=== PATIENT | female | born 1985 | race Hispanic/Latino ===

== ENCOUNTER 2018-06-06 20:11 | Inpatient (IN) | payer SELFPAY ==
[~2018-06-06] VITALS: Ht 160 cm; Wt 69.9 kg
[2018-06-06 20:33] LABS: APPEARANCE,URINE Clear (CLEAR); BILIRUBIN,URINE Negative (NEGATIVE); COLOR,URINE Yellow (YELLOW); GLUCOSE, URINE (UA) Negative (NEGATIVE); KETONES,URINE Negative (NEGATIVE); LEUKOCYTE ESTERASE ,URINE Trace (NEGATIVE); NITRATE,URINE Negative (NEGATIVE); OCCULT BLOOD,URINE Moderate (NEGATIVE); PROTEIN,URINE Negative (NEGATIVE)
[2018-06-06 20:37] LABS: HCG,QUAL RESULT NEGATIVE (NEGATIVE)
[2018-06-06 20:37] LABS: BASOPHILS % (AUTO) 0.7 % (0.0-5.0); EOSINOPHILS % (AUTO) 1.9 % (0.0-8.0); HEMATOCRIT 35.4 % (36-48); LYMPHOCYTES % (AUTO) 40.7 % (21.0-51.0); MEAN CORPUSCULAR HEMOGLOBIN 26.4 pg (27.0-33.0); MONOCYTES % (AUTO) 6.4 % (3.0-13.0); NEUTROPHILS % (AUTO) 50.3 % (40.0-77.0); PLATELET COUNT (AUTO) 345 K/uL (130-400); RED BLOOD CELL COUNT(AUTO) 4.42 MIL/uL (4.00-5.50); RED CELL DISTRIBUTION WIDTH 14.5 % (11.0-15.5); WHITE BLOOD COUNT (AUTO) 5.9 K/uL (4.8-10.8)
[2018-06-06 20:44] LABS: BACTERIA,URINE Rare /HPF (None Seen); SQUAMOUS EPITHELIAL CELL,UR Few /HPF (0-2); WBC,URINE 0-1 /HPF (0-1)
[2018-06-06 20:50] LABS: CREATININE 0.7 mg/dL (0.5-1.5); POTASSIUM 3.6 mmol/L (3.5-5.1)
[2018-06-06 20:54] LABS: ALBUMIN 3.9 g/dL (3.5-5.0); BILIRUBIN,TOTAL 0.2 mg/dL (0.2-1.0); TOTAL PROTEIN, SERUM 7.8 g/dL (6.0-8.3)
[2018-06-06] MEDS ORDERED: SODIUM CHLORIDE 0.9% 1000ML 2,000 ML IV ONE (21:28)
[2018-06-06] MEDS ORDERED: ONDANSETRON HCL 4 MG/2 ML VIAL ONE (21:28)
[2018-06-06] MEDS ORDERED: MORPHINE SULFATE 4 MG/1ML SYG ONE (21:29)
[2018-06-07] MEDS ORDERED: MORPHINE SULFATE 2 MG/ML 1ML SYG ONE ×2 (01:06→03:39)
[2018-06-07] MEDS ORDERED: ONDANSETRON HCL 4 MG/2 ML VIAL IV PRN (02:30)
[2018-06-07] MEDS ORDERED: ACETAMINOPHEN 325 MG TAB PO PRN ×2 (02:30→10:00)
[2018-06-07 02:50] VITALS: BP 110/59
[2018-06-07] MEDS ORDERED: ONDANSETRON HCL 4 MG/2 ML VIAL ONE (03:39)
[2018-06-07] MEDS: MORPHINE SULFATE 2 MG/ML 1ML SYG IV PRN ×3 (03:44→22:02)
[2018-06-07 08:11] VITALS: BP 86/40
[2018-06-07] MEDS: SODIUM CHLORIDE 0.9% 1000ML 1,000 ML IV SCH ×3 (09:06→16:06)
[2018-06-07] MEDS: FAMOTIDINE/PF 20 MG/2 ML VIAL IV SCH ×2 (09:25→20:52)
[2018-06-07] MEDS ORDERED: TRAMADOL HCL 50 MG TABLET PO PRN (10:00)
[2018-06-07] MEDS ORDERED: ONDANSETRON HCL MDV 20ML 2 MG/ML VIAL IVP PRN (10:00)
[2018-06-07] MEDS ORDERED: MORPHINE SULFATE 4 MG/1ML SYG IV PRN (10:00)
[2018-06-07] MEDS ORDERED: HYDRALAZINE HCL 20 MG/ML VIAL IV PRN (10:00)
[2018-06-07 11:37] VITALS: BP 99/37
[2018-06-07 15:40] VITALS: BP 98/62
--- NOTE | 2018-06-07 16:07 | NUR ---
IA/DCP/ SELF PAY PKT IA DONE W TEJINDER AT B/SIDE ENG SPEAKING, AA[place] LIVES W SONS 8 & 10; BOYFIREND TO HELP ON DC; UGO NO HH NO PROV; CURRENTLY UNEMPLOYED; PREVIOUS CLIENT OF [facility], WAS TOLD SHE COULD NOT HAVE FREE APPTS; STOPPED GOING ADVISED PATIENT TO RE REGISTER; CO PAY POSSIBLE Addendum: 06/07/18 at 1610 by TRINH CURRIE RN CM Amended: Links added.
[2018-06-07 20:11] VITALS: BP 94/54
[2018-06-07] MEDS ORDERED: FAMOTIDINE/PF 20 MG/2 ML VIAL IV SCH (21:00)
[2018-06-07 23:26] VITALS: BP 98/47
[2018-06-08 03:37] VITALS: BP 102/48
[2018-06-08 05:59] LABS: BASOPHILS % (AUTO) 0.8 % (0.0-5.0); HEMATOCRIT 31.4 % (36-48); MEAN CORPUSCULAR HEMOGLOBIN 26.3 pg (27.0-33.0); MEAN CORPUSCULAR HGB CONC 32.8 g/dL (32.0-36.0); MEAN CORPUSCULAR VOLUME 80.1 fL (79-99); MONOCYTES % (AUTO) 7.7 % (3.0-13.0); NEUTROPHILS % (AUTO) 45.5 % (40.0-77.0); PLATELET COUNT (AUTO) 255 K/uL (130-400); RED BLOOD CELL COUNT(AUTO) 3.92 MIL/uL (4.00-5.50); RED CELL DISTRIBUTION WIDTH 14.5 % (11.0-15.5); WHITE BLOOD COUNT (AUTO) 3.7 K/uL (4.8-10.8)
[2018-06-08] MEDS: SODIUM CHLORIDE 0.9% 1000ML 1,000 ML IV SCH ×2 (06:08→12:54)
[2018-06-08 06:22] LABS: BILIRUBIN,TOTAL 0.4 mg/dL (0.2-1.0); CREATININE 0.6 mg/dL (0.5-1.5); POTASSIUM 3.5 mmol/L (3.5-5.1); TOTAL PROTEIN, SERUM 6.2 g/dL (6.0-8.3)
[2018-06-08 08:00] VITALS: BP 119/47
--- NOTE | 2018-06-08 08:00 | NUR ---
AM SHIFT ASSESSMENT, FEELING BETTER, DENIES N/V AT THIS TIME.
--- NOTE | 2018-06-08 09:00 | NUR ---
IN TO SEE PT. PLACED ORDER FOR DIET, IF TOLERATED WILL DISCHARGE.TO HOME. ORDERS WILL BE ENTERED.
[2018-06-08] MEDS ORDERED: TRAM50TA4 PO (09:10)
[2018-06-08] MEDS ORDERED: PANT40SU PO (09:10)
[2018-06-08] MEDS: FAMOTIDINE/PF 20 MG/2 ML VIAL IV SCH (10:39)
--- NOTE | 2018-06-08 11:30 | NUR ---
STATES FEELS OK AFTER EATING AND WANTS TO KNOW IF SHE WILL BE DISCHARGED.
[2018-06-08 12:00] VITALS: BP 109/68
--- NOTE | 2018-06-08 14:15 | NUR ---
DISCHARGED NOW USING TEACH BACK. RX.AND DC PAPERS GIVEN AND BOTH SHE AND SPOUSE VERBALIZE UNDERSTANDING OF ALL INST. GIVEN. LIST OF LOCAL DRS. GIVEN SHE STATES SHE HAS NOT YET ESTABLISHED HERSELF WITH AN MD HERE.
== END 2018-06-08 14:36 | disposition home or self-care (01) | DRG 440 ==
LOC: EDH 20:11 → OBSVTOIN 20:12 → EDHIP 20:12 → 3CH 06-07 02:46
PROVIDERS: ADMIT Internal Medicine; ATTEND Internal Medicine
DX: K85.90 Acute pancreatitis without necrosis or infection, unspecified (principal); F17.210 Nicotine dependence, cigarettes, uncomplicated; K21.9 Gastro-esophageal reflux disease without esophagitis; Z88.8 Allergy status to other drugs, medicaments and biological substances
CPT/HCPCS: 36415; 74176; 76705; 80053; 80061; 81001; 81025; 83690; 85025; G0378; J2270; J2405; J3490; J7030

== ENCOUNTER 2018-06-23 17:09 | Emergency (ER) | payer SELFPAY ==
[~2018-06-23 17:09] MED LIST: PANT40SU PO; TRAM50TA4 PO
[2018-06-23 17:49] LABS: BASOPHILS % (AUTO) 0.7 % (0.0-5.0); EOSINOPHILS % (AUTO) 1.7 % (0.0-8.0); HEMATOCRIT 36.8 % (36-48); LYMPHOCYTES % (AUTO) 35.8 % (21.0-51.0); MEAN CORPUSCULAR HEMOGLOBIN 25.1 pg (27.0-33.0); MEAN CORPUSCULAR HGB CONC 32.3 g/dL (32.0-36.0); MEAN CORPUSCULAR VOLUME 77.9 fL (79-99); MONOCYTES % (AUTO) 8.2 % (3.0-13.0); NEUTROPHILS % (AUTO) 53.6 % (40.0-77.0); PLATELET COUNT (AUTO) 329 K/uL (130-400); RED BLOOD CELL COUNT(AUTO) 4.72 MIL/uL (4.00-5.50); RED CELL DISTRIBUTION WIDTH 14.5 % (11.0-15.5); WHITE BLOOD COUNT (AUTO) 6.2 K/uL (4.8-10.8)
[2018-06-23] MEDS ORDERED: ONDANSETRON HCL 4 MG/2 ML VIAL ONE (17:53)
[2018-06-23 17:56] LABS: APPEARANCE,URINE Cloudy (CLEAR); BILIRUBIN,URINE Negative (NEGATIVE); COLOR,URINE Yellow (YELLOW); GLUCOSE, URINE (UA) Negative (NEGATIVE); KETONES,URINE Negative (NEGATIVE); LEUKOCYTE ESTERASE ,URINE Moderate (NEGATIVE); NITRATE,URINE Negative (NEGATIVE); OCCULT BLOOD,URINE Negative (NEGATIVE); PH,URINE 8.5 (5.0-8.0); PROTEIN,URINE Negative (NEGATIVE)
[2018-06-23 17:59] LABS: AMPHET/METH SCREEN,URINE NEGATIVE (NEGATIVE); BARBITURATE SCREEN, URINE NEGATIVE (NEGATIVE); BENZODIAZEPINES SCREEN,URINE NEGATIVE (NEGATIVE); CANNABINOID SCREEN,URINE NEGATIVE (NEGATIVE); COCAINE SCREEN,URINE NEGATIVE (NEGATIVE); OPIATE SCREEN,URINE NEGATIVE (NEGATIVE); PHENCYCLIDINE SCREEN,URINE NEGATIVE (NEGATIVE)
[2018-06-23 18:00] LABS: HCG,QUAL RESULT NEGATIVE (NEGATIVE)
[2018-06-23 18:02] LABS: CREATININE 0.6 mg/dL (0.5-1.5); POTASSIUM 3.6 mmol/L (3.5-5.1)
[2018-06-23 18:04] LABS: ALBUMIN 3.9 g/dL (3.5-5.0); BILIRUBIN,DIRECT 0.1 mg/dL (0.0-0.3); BILIRUBIN,TOTAL 0.3 mg/dL (0.2-1.0); TOTAL PROTEIN, SERUM 7.8 g/dL (6.0-8.3)
[2018-06-23 18:07] LABS: AMORPHOUS SEDIMENT,UR Many /LPF (None Seen); BACTERIA,URINE Many /HPF (None Seen); RBC,URINE None Seen /HPF (0-1)
[2018-06-23] MEDS ORDERED: DICYCLOMINE HCL 20 MG TAB ONE (18:15)
[2018-06-23] MEDS ORDERED: ACETAMINOPHEN 325 MG TAB ONE (19:03)
== END 2018-06-23 20:19 | disposition home or self-care (01) ==
LOC: EDH 17:09
DX: R10.13 Epigastric pain (principal); R11.0 Nausea; K21.9 Gastro-esophageal reflux disease without esophagitis; Z72.0 Tobacco use; Z88.6 Allergy status to analgesic agent
CPT/HCPCS: 36415; 76705; 80048; 80076; 80305; 81001; 81025; 82150; 83690; 85025; 96374; 99284; J2405

== ENCOUNTER 2019-07-24 21:04 | Emergency (ER) | payer OTHER ==
[2019-07-24 21:56] LABS: BILIRUBIN,URINE Negative (NEGATIVE); COLOR,URINE Yellow (YELLOW); GLUCOSE, URINE (UA) Negative (NEGATIVE); KETONES,URINE Negative (NEGATIVE); LEUKOCYTE ESTERASE ,URINE Negative (NEGATIVE); NITRATE,URINE Negative (NEGATIVE); OCCULT BLOOD,URINE Negative (NEGATIVE); PH,URINE 6.5 (5.0-8.0); PROTEIN,URINE Negative (NEGATIVE)
[2019-07-24 21:58] LABS: APPEARANCE,URINE CLEAR (CLEAR)
[2019-07-24 22:03] LABS: HCG,QUAL RESULT NEGATIVE (NEGATIVE)
[2019-07-24] MEDS ORDERED: CYCLOBENZAPRINE HCL 10 MG TABLET ONE (22:11)
[2019-07-24] MEDS ORDERED: MORPHINE SULFATE 5 MG/ML VIAL ONE (22:11)
== END 2019-07-24 22:52 | disposition home or self-care (01) ==
LOC: EDH 21:04
DX: M54.41 Lumbago with sciatica, right side (principal); K21.9 Gastro-esophageal reflux disease without esophagitis; Z88.6 Allergy status to analgesic agent; Z98.51 Tubal ligation status; Z72.0 Tobacco use
CPT/HCPCS: 81003; 81025; 96372; 99283; J2270

== ENCOUNTER 2021-10-30 05:25 | Emergency (ER) | payer OTHER ==
[~2021-10-30] VITALS: Ht 160 cm; Wt 60.8 kg
[2021-10-30 06:25] LABS: BILIRUBIN,URINE NEGATIVE (NEGATIVE); COLOR,URINE YELLOW (YELLOW); GLUCOSE, URINE (UA) NEGATIVE (NEGATIVE); KETONES,URINE NEGATIVE (NEGATIVE); LEUKOCYTE ESTERASE ,URINE NEGATIVE (NEGATIVE); NITRATE,URINE NEGATIVE (NEGATIVE); OCCULT BLOOD,URINE NEGATIVE (NEGATIVE); PH,URINE 6.5 (5.0-8.0); PROTEIN,URINE NEGATIVE (NEGATIVE)
[2021-10-30 06:26] LABS: APPEARANCE,URINE CLEAR (CLEAR)
[2021-10-30 06:28] LABS: BASOPHILS % (AUTO) 0.5 % (0.0-5.0); EOSINOPHILS % (AUTO) 1.2 % (0.0-8.0); HEMATOCRIT 39.4 % (36-48); LYMPHOCYTES % (AUTO) 36.5 % (21.0-51.0); MEAN CORPUSCULAR HEMOGLOBIN 27.3 pg (27.0-33.0); MEAN CORPUSCULAR VOLUME 85.5 fL (79-99); MONOCYTES % (AUTO) 7.6 % (3.0-13.0); NEUTROPHILS % (AUTO) 54.1 % (40.0-77.0); PLATELET COUNT (AUTO) 284 K/uL (130-400); RED BLOOD CELL COUNT(AUTO) 4.61 MIL/uL (4.00-5.50); RED CELL DISTRIBUTION WIDTH 14.7 % (11.0-15.5); WHITE BLOOD COUNT (AUTO) 7.4 K/uL (4.8-10.8)
[2021-10-30 06:28] LABS: HCG,QUAL RESULT NEGATIVE (NEGATIVE)
[2021-10-30] MEDS ORDERED: 0.9%NACL 1000ML 1,000 ML IV ONE ×2 (06:30→10:30)
[2021-10-30] MEDS ORDERED: MORPHINE 4 MG SYG IVP ONE (06:30)
[2021-10-30] MEDS ORDERED: ONDANSETRON 4MG INJ IVP ONE (06:30)
[2021-10-30 06:48] LABS: ALBUMIN 3.8 g/dL (3.5-5.0); BILIRUBIN,TOTAL 0.2 mg/dL (0.2-1.0); CREATININE 0.7 mg/dL (0.5-1.5); POTASSIUM 3.8 mmol/L (3.5-5.1); TOTAL PROTEIN, SERUM 7.2 g/dL (6.0-8.3)
[2021-10-30] MEDS ORDERED: ORPHENADRINE CITRATE 30 MG/ML ML ONE (10:00)
[2021-10-30] MEDS ORDERED: ORPHENADRINE CITRATE 30 MG/ML ML IVP ONE (10:30)
[2021-10-30 11:10] VITALS: BP 110/60
[2021-10-30] MEDS ORDERED: TRAM50TA4 PO (12:24)
== END 2021-10-30 12:37 | disposition home or self-care (01) ==
LOC: EDH 05:25
DX: R10.31 Right lower quadrant pain (principal); K21.9 Gastro-esophageal reflux disease without esophagitis; Z88.6 Allergy status to analgesic agent; Z79.899 Other long term (current) drug therapy; Z98.890 Other specified postprocedural states
CPT/HCPCS: 36415; 74176; 76856; 80053; 81003; 81025; 83690; 85025; 96361; 96374; 96375; 99284; J2270; J2360; J2405; J7030 ×2

== ENCOUNTER 2022-12-09 12:05 | Emergency (ER) | payer OTHER ==
[~2022-12-09] VITALS: Ht 160 cm; Wt 67.6 kg
[2022-12-09 12:43] LABS: BASOPHILS % (AUTO) 0.4 % (0.0-5.0); EOSINOPHILS % (AUTO) 0.5 % (0.0-8.0); HEMATOCRIT 40.1 % (36-48); LYMPHOCYTES % (AUTO) 26.1 % (21.0-51.0); MEAN CORPUSCULAR HEMOGLOBIN 26.7 pg (27.0-33.0); MEAN CORPUSCULAR HGB CONC 30.9 g/dL (32.0-36.0); MEAN CORPUSCULAR VOLUME 86.2 fL (79-99); MONOCYTES % (AUTO) 6.4 % (3.0-13.0); NEUTROPHILS % (AUTO) 66.3 % (40.0-77.0); PLATELET COUNT (AUTO) 328 K/uL (130-400); RED BLOOD CELL COUNT(AUTO) 4.65 MIL/uL (4.00-5.50); RED CELL DISTRIBUTION WIDTH 15.3 % (11.0-15.5); WHITE BLOOD COUNT (AUTO) 9.4 K/uL (4.8-10.8)
[2022-12-09 12:53] LABS: CREATININE 0.7 mg/dL (0.5-1.5); POTASSIUM 4.2 mmol/L (3.5-5.1)
[2022-12-09 13:00] LABS: ALBUMIN 3.5 g/dL (3.5-5.0); TOTAL PROTEIN, SERUM 7.1 g/dL (6.0-8.3)
[2022-12-09 13:40] VITALS: BP 105/57; PULSE 67; RESP 20; O2SAT 100
[2022-12-09] MEDS ORDERED: ONDA4TAB10 PO (13:43)
[2022-12-09] MEDS ORDERED: OMEP40CA21 PO (13:43)
[2022-12-09] MEDS ORDERED: PANTOPRAZOLE 40 MG TAB DR ONE (13:54)
[2022-12-09 13:56] LABS: APPEARANCE,URINE CLOUDY (CLEAR); BILIRUBIN,URINE NEGATIVE (NEGATIVE); COLOR,URINE YELLOW (YELLOW); GLUCOSE, URINE (UA) NEGATIVE (NEGATIVE); KETONES,URINE NEGATIVE (NEGATIVE); LEUKOCYTE ESTERASE ,URINE NEGATIVE Leu/uL (NEGATIVE); NITRATE,URINE NEGATIVE (NEGATIVE); OCCULT BLOOD,URINE NEGATIVE (NEGATIVE); PROTEIN,URINE 20 mg/dL (NEGATIVE); UROBILINOGEN,URINE 3 mg/dL (0.2-1.0)
[2022-12-09] MEDS ORDERED: HYDROCODONE/ACETAMINOPHEN 5/325 MG TAB PO ONE (14:00)
[2022-12-09 14:35] LABS: BACTERIA,URINE FEW /HPF (None Seen); MUCUS,URINE MANY LPF (None Seen); RBC,URINE 0-1 /HPF (0-1); SQUAMOUS EPITHELIAL CELL,UR MANY /HPF (0-2)
[2022-12-10] MEDS ORDERED: PANTOPRAZOLE 40 MG TAB DR PO SCH (09:00)
== END 2022-12-09 14:56 | disposition home or self-care (01) ==
LOC: EDH 12:05
DX: K80.20 Calculus of gallbladder without cholecystitis without obstruction (principal); K21.9 Gastro-esophageal reflux disease without esophagitis; Z88.6 Allergy status to analgesic agent
CPT/HCPCS: 36415; 76705; 80053; 81001; 83690; 85025

== ENCOUNTER 2023-11-16 10:15 | Emergency (ER) | payer MEDICAID, OTHER ==
[~2023-11-16] VITALS: Ht 160 cm; Wt 68.0 kg
[~2023-11-16 10:15] MED LIST changes: +OMEP40CA21 PO; +ONDA-243 PO
[2023-11-16] MEDS: 0.9%NACL 1000ML 1,000 ML IV ONE (11:00)
[2023-11-16] MEDS: MORPHINE 2 MG SYG IVP ONE (11:00)
[2023-11-16] MEDS: ONDANSETRON 4MG INJ IVP ONE (11:00)
[2023-11-16 11:15] LABS: BASOPHILS # (AUTO) 0.03 K/uL (0.00-0.20); BASOPHILS % (AUTO) 0.5 % (0.0-5.0); EOSINOPHILS # (AUTO) 0.08 K/uL (0.00-0.70); EOSINOPHILS % (AUTO) 1.3 % (0.0-8.0); HEMATOCRIT 42.8 % (36-48); IMMATURE GRANULOCYTE ABSOLUTE 0.01 K/uL (0-1); LYMPHOCYTES # (AUTO) 1.4 K/uL (1.0-4.8); LYMPHOCYTES % (AUTO) 23.4 % (21.0-51.0); MEAN CORPUSCULAR HEMOGLOBIN 28.5 pg (27.0-33.0); MEAN CORPUSCULAR HGB CONC 32.2 g/dL (32.0-36.0); MEAN CORPUSCULAR VOLUME 88.4 fL (79-99); MONOCYTES # (AUTO) 0.4 K/uL (0.1-1.0); MONOCYTES % (AUTO) 6.4 % (3.0-13.0); NEUTROPHILS % (AUTO) 68.2 % (40.0-77.0); PLATELET COUNT (AUTO) 317 K/uL (130-400); RED BLOOD CELL COUNT(AUTO) 4.84 MIL/uL (4.00-5.50); RED CELL DISTRIBUTION WIDTH 14.2 % (11.0-15.5); WHITE BLOOD COUNT (AUTO) 5.9 K/uL (4.8-10.8)
[2023-11-16 11:32] LABS: ALBUMIN 3.8 g/dL (3.5-5.0); BILIRUBIN,TOTAL 0.4 mg/dL (0.2-1.0); CREATININE 0.6 mg/dL (0.5-1.0); POTASSIUM 4.2 mmol/L (3.5-5.1)
[2023-11-16] MEDS: METOCLOPRAMIDE 10 MG/2 ML VIAL IVP ONE (11:49)
[2023-11-16 12:58] LABS: APPEARANCE,URINE CLOUDY (CLEAR); BILIRUBIN,URINE NEGATIVE (NEGATIVE); COLOR,URINE LIGHT-YELLOW (YELLOW); GLUCOSE, URINE (UA) NEGATIVE (NEGATIVE); KETONES,URINE NEGATIVE (NEGATIVE); LEUKOCYTE ESTERASE ,URINE NEGATIVE Leu/uL (NEGATIVE); NITRATE,URINE NEGATIVE (NEGATIVE); OCCULT BLOOD,URINE NEGATIVE (NEGATIVE); PH,URINE 7.5 (5.0-8.0); PROTEIN,URINE NEGATIVE (NEGATIVE); UROBILINOGEN,URINE 0.2 mg/dL (0.2-1.0)
[2023-11-16 13:04] LABS: ADD UA MICROSCOPIC YES; HCG,QUALITATIVE URINE NEGATIVE (NEGATIVE)
[2023-11-16 13:10] LABS: BACTERIA,URINE RARE /HPF (None Seen); SQUAMOUS EPITHELIAL CELL,UR MOD /HPF (0-2)
[2023-11-16] MEDS ORDERED: SUCR1TAB28 PO (13:33)
[2023-11-16] MEDS ORDERED: ONDA-243 PO (13:33)
[2023-11-16] MEDS ORDERED: OMEP40CA21 PO (13:33)
[2023-11-16 13:51] VITALS: BP 100/57; PULSE 55; RESP 18; O2SAT 100
== END 2023-11-16 13:51 | disposition home or self-care (01) ==
LOC: EDH 10:15
DX: K29.00 Acute gastritis without bleeding (principal); R11.2 Nausea with vomiting, unspecified; K21.9 Gastro-esophageal reflux disease without esophagitis; Z88.8 Allergy status to other drugs, medicaments and biological substances; Z79.899 Other long term (current) drug therapy; Z87.442 Personal history of urinary calculi; Z98.51 Tubal ligation status; Z88.6 Allergy status to analgesic agent; Z87.19 Personal history of other diseases of the digestive system
CPT/HCPCS: 99284; 96374; 96375; 96361; 84478; 80053; 83690; 85025; 81001; 81025; 36415; J2270; J7030; J2405; J2765

== ENCOUNTER 2025-04-02 12:21 | Emergency (ER) | payer BC, MEDICAID ==
[~2025-04-02] VITALS: Ht 157.5 cm; Wt 63.6 kg
[~2025-04-02 12:21] MED LIST changes: +SUCR1TAB28 PO
[2025-04-02] MEDS: TRIAMCINOLONE ACETONIDE 40 MG/ML 1ML VIAL IM ONE (13:21)
[2025-04-02] MEDS: ORPHENADRINE 60MG/2ML IM ONE (13:21)
[2025-04-02] MEDS: LIDOCAINE 4% ADH..PATCH TP ONE (13:21)
--- NOTE | 2025-04-02 13:34 | ERN ---
ED Note History of Present Illness Stated Complaint: LEFT SCIATICA Chief Complaint: Lower Extremity Pain/Injury Time Seen by MD: 12:22 Time Seen by Midlevel: 12:22 Dictation: 39 year old female coming in with complaints of left flank pain radiating down her leg. Patient Craig has been going on and off for the last two weeks. Denies any fall, trauma, lifting or pushing anything heavy Allergies: Coded Allergies: ibuprofen (Unverified Allergy, Unknown, 06/07/18) Home Meds Active Scripts Ondansetron (Ondansetron Odt) 4 Mg Tab.rapdis, 4 MG PO Q6HPRN for N/V, #30 TAB Prov:DES [employer]CHO[employer] OCCUPATIONAL THERAPIST 11/16/23 Omeprazole (Omeprazole) 40 Mg Capsule., 40 MG PO DAILY for 30 Days, #30 CAP Prov:DES [employer] OCCUPATIONAL THERAPIST 11/16/23 Sucralfate (Carafate) 1 Gram Tablet, 1 GM PO ACHS for 10 Days, #40 TAB Prov:DES [employer] OCCUPATIONAL THERAPIST 11/16/23 Omeprazole (Omeprazole) 40 Mg Capsule.dr, 40 MG PO BID for 14 Days, #28 CAP 0 Refills Prov:TOM B[employer]NS [employer]CHO[employer] OCCUPATIONAL THERAPIST 12/09/22 Ondansetron (Ondansetron Odt) 4 Mg Tab.rapdis, 4 MG PO Q6HPRN PRN for nausea, #15 TAB Prov:TOM [employer] OCCUPATIONAL THERAPIST 12/09/22 Tramadol Hcl (Tramadol HCl) 50 Mg Tablet, 50 MG PO TID PRN for pain, #10 TAB 0 Refills Prov:LATONIA XIONG MD 10/30/21 Pantoprazole Sodium (Protonix) 40 Mg Granpkt., 40 MG PO DAILYDINNER, #20 PACK 0 Refills Prov:SALIMA ALEX MD 06/08/18 Tramadol Hcl (Tramadol HCl) 50 Mg Tablet, 50 MG PO Q6HPRN PRN for PAIN LEVEL 6 TO 10, #20 TAB 0 Refills Prov:SALIMA ALEX MD 06/08/18 Past Medical History Past Medical History: Diverticulitis, Diverticulosis, GERD, Kidney Stone, Pancreatitis, Sciatica Additional Past Medical Hx: GASTRITIS Surgical History: BTL Social History: Other History: Not Applicable LMP: Mar 29, 2025 Review of System Dictation Constitutional: Negative for fever,chills, and weight loss Eyes: Negative for injury, pain,redness, and discharge ENT: Negative for injury,pain or swelling Cardiovascular: Negative for chest pain, palpitations, and edema Respiratory: Negative for shortness of breath, cough, and wheezing, Abdomen/GI: Negative for abdominal pain, nausea, vomiting, diarrhea, and constipation Back: Negative for injury and pain : Negative for injury, bleeding and discharge MS/Extremity: Negative for injury and deformity, complaining of left leg pain Skin: Negative for rash, and discoloration Neuro: Negative for headache, weakness, numbness, tingling, and seizure Psych: Negative for suicide ideation, homicidal ideation, and hallucinations Review of Systems: was completed Initial Vital Sign VS Vital Signs Date Time Temp Pulse Resp B/P (MAP) Pulse Ox O2 Delivery O2 Flow Rate FiO2 04/02/25 12:22 98.2 75 16 114/84 98 Room Air 0 Physical Exam Dictation Constitutional: Negative for fever,chills, and weight loss Eyes: Negative for injury, pain,redness, and discharge ENT: Negative for injury,pain or swelling Cardiovascular: Negative for chest pain, palpitations, and edema Respiratory: Negative for shortness of breath, cough, and wheezing, Abdomen/GI: Negative for abdominal pain, nausea, vomiting, diarrhea, and constipation Back: Negative for injury and pain : Negative for injury, bleeding and discharge MS/Extremity: Negative for injury and deformity, pain on palpation to the left upper glute extending to the lower leg. Skin: Negative for rash, and discoloration Neuro: Negative for headache, weakness, numbness, tingling, and seizure Psych: Negative for suicide ideation, homicidal ideation, and hallucinations ED Course ED Course Orders Procedure Category Date Status Time Lidocaine (Lidocaine PHA 04/02/25 Complete Patch 4%) 12:30 Orphenadrine Citrate PHA 04/02/25 Complete (Norflex) 12:30 Triamcinolone Acet PHA 04/02/25 Complete 40mg/Ml 1ml (Kenalog 12:30 Current Medications Medications (Trade) Dose Ordered Sig/Maia Route PRN Reason Start Time Stop Time Status Last Admin Dose Admin Lidocaine (Lidocaine Patch 4%) 1 each ONCE ONCE TP 04/02/25 12:30 04/02/25 12:31 DC 04/02/25 13:21 Orphenadrine Citrate (Norflex) 60 mg ONCE ONCE IM 04/02/25 12:30 04/02/25 12:31 DC 04/02/25 13:21 Triamcinolone Acetonide (Kenalog 40) 40 mg ONCE ONCE IM 04/02/25 12:30 04/02/25 12:31 DC 04/02/25 13:21 Vital Signs Date Time Temp Pulse Resp B/P (MAP) Pulse Ox O2 Delivery O2 Flow Rate FiO2 04/02/25 12:22 98.2 75 16 114/84 98 Room Air 0 Medical Decision Making MDM MDM: 39 year old female coming in with complaints of left flank pain radiating down her leg. Patient states this has been going on and off for the last two weeks. Denies any fall, trauma, lifting or pushing anything heavy Differential diagnosis: Nerve impingement sciatica, musculoskeletal pain Rationale: Tests considered and ordered secondary to shared decision making include: Previous outside records reviewed: Old ER visits. Risk of complication and/or morbidity or mortality of patient management: None Medications-Per medication reconciliation Need for hospitalization: Patient does not meet criteria for hospitalization. Need for emergency major/minor surgery: No There are no social concerns with this patient. Prescription drug management Prescriptions will include symptomatic care Patient's prior external medical records from other ER visits were reviewed by me as indicated. Prior testing and results from previous visits were reviewed. Prior tests were taken into account with medical decision making and resource utilization, independent historian/historians were used to obtain complete medical history. I independently interpreted the test that were performed, results were reviewed by me and considered findings on radiology if ordered. Medical management and examination interpretation discussions were had by me with other qualified healthcare professionals as indicated for the patient's care. DX & DISP Disposition: Discharge Departure Impression: Primary Impression: Sciatic leg pain Condition: Stable Scripts Methocarbamol (Methocarbamol) 1,000 Mg Tablet 1000 MG PO TID PRN for MUSCLE SPASMS for 5 Days, #15 TAB Prov: RAMEZ PLATT ADMINISTRATIVE SUPPORT MANAGER 04/02/25 Methylprednisolone (Medrol) 4 Mg Tab.ds.pk 1 TAB PO AD for 6 Days, #21 TAB 0 Refills 6 on day 1 then reduce by one tablet daily until gone Prov: RAMEZ PLATT ADMINISTRATIVE SUPPORT MANAGER 04/02/25 Lidocaine (Lidocaine) 4 % Adh..patch 1 PATCH TP DAILY for 10 Days, #10 PATCH 0 Refills Prov: RAMEZ PLATT CNP 04/02/25 Additional Instructions: Follow up with your primary care provider. Return to the hospital if you develop any worsening symptoms. Take medications as prescribed. You can add Tylenol to the, medications. Referrals: DENNY SANTOS MD (PCP) Time of Disposition: 13:52 I have reviewed the case, and I agree with, Diagnosis and Plan RAMEZ PLATT CNP Apr 02, 2025 13:34
[2025-04-02] MEDS ORDERED: LIDO1ADH82 TP (13:52)
[2025-04-02] MEDS ORDERED: METH100054 PO (13:52)
[2025-04-02] MEDS ORDERED: METH4TAB3 PO (13:52)
[2025-04-02 13:58] VITALS: BP 115/79; PULSE 70; RESP 16; TEMP 98.3; O2SAT 98
== END 2025-04-02 14:03 | disposition home or self-care (01) ==
LOC: EDH 12:21
DX: M54.32 Sciatica, left side (principal); M79.606 Pain in leg, unspecified; Z79.899 Other long term (current) drug therapy; Z87.442 Personal history of urinary calculi; Z88.6 Allergy status to analgesic agent; Z98.51 Tubal ligation status
CPT/HCPCS: 99284; 96372 ×2; J3301; J2360